=== PATIENT | female | born 1990 | race Native Hawaiian/Other Pacific Islander ===

== ENCOUNTER 2023-06-09 03:34 | Emergency (ER) | payer SELFPAY ==
[~2023-06-09] VITALS: Ht 152 cm; Wt 41.0 kg
--- NOTE | 2023-06-09 03:50 | ED General ---
General Stated Complaint: CP,ABD PAIN Source of Information: Patient Exam Limitations: Language Barrier History of Present Illness Date Seen by Provider: Jun 09, 2023 Time Seen by Provider: 03:50 Initial Comments Patient is a 33-year-old female who presents to the emergency department with family chief complaint of abdominal and chest pain. History and review of systems are limited secondary to language barrier as the patient is . Reportedly the pain started this evening. She points to the epigastrium and low chest. She denies nausea. She denies burning with urination or diarrhea. She rates the pain at about a "5". She has not taken anything for it. She has not vomited. She takes no daily medications. She has had no prior surgeries. She has never been . She her last menstrual period was "last month". She is not making any eye contact. Head turned to her left with eyes closed and mumbles responses to core dipper who is a family member at the bedside. Timing/Duration: 1-3 Hours Severity: Moderate Associated Systoms: Chest Pain (abdominal pain) Allergies and Home Medications Allergies Coded Allergies: No Known Drug Allergies (Unverified , 06/09/23) Patient Home Medication List Home Medication List Reviewed: Yes Review of Systems Review of Systems Constitutional: see HPI EENTM: no symptoms reported Respiratory: no symptoms reported Cardiovascular: chest pain Gastrointestinal: abdominal pain Genitourinary: no symptoms reported Musculoskeletal: no symptoms reported Skin: no symptoms reported Psychiatric/Neurological: No Symptoms Reported Physical Exam Vital Signs Vital Signs - First Documented 06/09/23 03:46 Temp 36.9 Pulse 73 Resp 12 B/P (MAP) 121/66 (84) Pulse Ox 99 O2 Delivery Room Air Capillary Refill : Height, Weight, BMI Height: '" Weight: lbs. oz. kg; BMI Method: General Appearance: No Apparent Distress, Thin Eyes: Bilateral Eye Normal Inspection, Bilateral Eye PERRL HEENT: PERRL/EOMI, Moist Mucous Membranes Neck: Normal Inspection Respiratory: Lungs Clear, Normal Breath Sounds, No Accessory Muscle Use, No Respiratory Distress Cardiovascular: Regular Rate, Rhythm, Normal Peripheral Pulses Gastrointestinal: Other (voluntary guarding with palpation of the abdomen; normal bowel sounds. no distension. neg heel jar. neg psoas) Extremity: Normal Inspection, No Pedal Edema Neurologic/Psychiatric: Alert, No Motor/Sensory Deficits, Depressed Affect (flat and depressed affect; poor eye contact; ) Skin: Normal Color, Warm/Dry Progress/Results/Core Measures Suspected Sepsis SIRS Temperature: Pulse: Respiratory Rate: Laboratory Tests 06/09/23 03:55: White Blood Count 9.1 Blood Pressure / Mean: Laboratory Tests 06/09/23 03:55: Creatinine 0.77, Platelet Count 210, Total Bilirubin 0.5 Results/Orders Lab Results Laboratory Tests Test 06/09/23 03:55 06/09/23 04:20 Range/Units White Blood Count 9.1 4.3-11.0 10^3/uL Red Blood Count 4.00 3.80-5.11 10^6/uL Hemoglobin 11.6 11.5-16.0 g/dL Hematocrit 36 35-52 % Mean Corpuscular Volume 89 80-99 fL Mean Corpuscular Hemoglobin 29 25-34 pg Mean Corpuscular Hemoglobin Concent 33 32-36 g/dL Red Cell Distribution Width 12.2 10.0-14.5 % Platelet Count 210 130-400 10^3/uL Mean Platelet Volume 10.0 9.0-12.2 fL Immature Granulocyte % (Auto) 0 % Neutrophils (%) (Auto) 59 42-75 % Lymphocytes (%) (Auto) 30 12-44 % Monocytes (%) (Auto) 9 0-12 % Eosinophils (%) (Auto) 2 0-10 % Basophils (%) (Auto) 1 0-10 % Neutrophils # (Auto) 5.4 1.8-7.8 10^3/uL Lymphocytes # (Auto) 2.7 1.0-4.0 10^3/uL Monocytes # (Auto) 0.8 0.0-1.0 10^3/uL Eosinophils # (Auto) 0.2 0.0-0.3 10^3/uL Basophils # (Auto) 0.1 0.0-0.1 10^3/uL Immature Granulocyte # (Auto) 0.0 0.0-0.1 10^3/uL Sodium Level 136 135-145 MMOL/L Potassium Level 3.5 L 3.6-5.0 MMOL/L Chloride Level 107 98-107 MMOL/L Carbon Dioxide Level 20 L 21-32 MMOL/L Anion Gap 9 5-14 MMOL/L Blood Urea Nitrogen 8 7-18 MG/DL Creatinine 0.77 0.60-1.30 MG/DL Estimat Glomerular Filtration Rate 104 BUN/Creatinine Ratio 10 Glucose Level 96 70-105 MG/DL Calcium Level 8.7 8.5-10.1 MG/DL Corrected Calcium 8.7 8.5-10.1 MG/DL Total Bilirubin 0.5 0.1-1.0 MG/DL Aspartate Amino Transf (AST/SGOT) 20 5-34 U/L Alanine Aminotransferase (ALT/SGPT) 9 0-55 U/L Alkaline Phosphatase 58 40-136 U/L Total Protein 8.3 H 6.4-8.2 GM/DL Albumin 4.0 3.2-4.5 GM/DL Lipase 35 8-78 U/L Urine Color YELLOW Urine Clarity CLEAR Urine pH 5.5 5-9 Urine Specific [place] >=1.030 1.016-1.022 Urine Protein TRACE NEGATIVE Urine Glucose (UA) NEGATIVE NEGATIVE Urine Ketones NEGATIVE NEGATIVE Urine Nitrite POSITIVE H NEGATIVE Urine Bilirubin NEGATIVE NEGATIVE Urine Urobilinogen 1.0 < = 1.0 MG/DL Urine Leukocyte Esterase NEGATIVE NEGATIVE Urine RBC (Auto) 3+ H NEGATIVE Urine RBC NONE /HPF Urine WBC 0-2 /HPF Urine Squamous Epithelial Cells 0-2 /HPF Urine Crystals NONE /LPF Urine Bacteria LARGE H /HPF Urine Casts NONE /LPF Urine Mucus NEGATIVE /LPF Urine Culture Indicated YES My Orders Orders - VINCE PENA MD Ed Iv/Invasive Line Start (06/09/23 04:01) Cbc And Automated Diff (06/09/23 04:01) Comprehensive Metabolic Panel (06/09/23 04:01) Lipase (06/09/23 04:01) Ua Culture If Indicated (06/09/23 04:01) Urine Bedside (06/09/23 04:01) Ns Iv 1000 Ml (Ns Iv 1000 Ml) (06/09/23 04:01) Ketorolac Injection (Ketorolac Injection (06/09/23 05:00) Urine Culture (06/09/23 04:20) Ct Abd/Pelvis Wo(Kidney Stone) (06/09/23 05:30) Medications Given in ED Current Medications Medications Dose Ordered Sig/Miladis Route Start Time Stop Time Status Last Admin Dose Admin Ketorolac Tromethamine 15 mg ONCE ONCE IVP 06/09/23 05:00 06/09/23 05:01 DC 06/09/23 04:59 15 MG Vital Signs/I&O 06/09/23 03:46 Temp 36.9 Pulse 73 Resp 12 B/P (MAP) 121/66 (84) Pulse Ox 99 O2 Delivery Room Air Capillary Refill : Progress Note : Time: 05:53 Progress Note Patient seen and examined by me. Eval today includes physical exam, CBC, CMP, Urine test, UA and Ct renal stone protocol. SHe has voluntary guarding to the abdomen with slightly hypoactive BS. No other contributing physical exam findings. Stable VS. ddx includes UTI, constipation, appendicitis, renal stone Labs independently reviewed and interpreted by me. Her CBC is normal, CMP normal urine preg is negative. Ua reveals TNTC WBC and large bacteria. Patient maintains no pain with urination and denies being on period. CT renal stone protocl independently reviewed and interpreted by me - I see no evidence of kidney stone. She is treated with 15mg IV toradol and has complete relief of pain. She is much more alert at the time of my re-evaluation and states that she is ready to go home. SHe does have quite a bit of bowel gas on her CT. Possibly this is was just dyspepsia and gas. I will give her return precautions - if fever, vomiting return to care. Patient encouraged to follow up with [facility] to establish care for routine health maintenance. ECG Initial ECG Impression Date: Jun 09, 2023 Initial ECG Impression Time: 03:54 Initial ECG Rate: 69 Initial ECG Rhythm: Normal Sinus Initial ECG Intervals: Normal Initial ECG Impression: Normal Initial ECG Comparisson: No Previous ECG Available Diagnostic Imaging Diagonstic Imaging: CT Comments NAME: CIERRA MAZA [facility] REC#: [id number] PT STATUS: REG ER : 1990 PHYSICIAN: VINCE PENA MD ADMIT DATE: 06/09/23/ER Draft Date of Exam:06/09/23 CT ABD/PELVIS WO(KIDNEY STONE) Clinical indication: Patient chest pain and abdominal pain. Exam: CT exam of the abdomen and pelvis is performed without IV or oral contrast using stone protocol. Coronal and sagittal reformatted images were created. Auto Exposure Controls were utilized during the CT exam to meet ALARA standards for radiation dose reduction. Comparisons: None. Findings: Visualized lung bases: Unremarkable. Liver: Unremarkable as visualized. Gallbladder: Unremarkable. Pancreas: Unremarkable as visualized. Spleen: Unremarkable as visualized. Adrenal glands: Unremarkable. Kidneys/ ureters: Unremarkable as visualized. Aorta: Unremarkable as visualized. Intraabdominal/ retroperitoneal contents: Unremarkable. Intestines: Unremarkable as visualized. Appendix: Unremarkable. Bladder: Unremarkable as visualized. Pelvic organs: Unremarkable as visualized. There is a small amount of free fluid in the pelvis which may be physiologic. Extra abdominal/ pelvis regions: Unremarkable. Abdominal wall: Unremarkable. Bones: Unremarkable. Impression: Unremarkable CT scan of the abdomen and pelvis without IV contrast. Dictated on workstation # [id number] Dict: 06/09/23 0559 Trans: 06/09/23 0604 [id number] Interpreted by: BERNY KWOK MD Electronically signed by: Departure Impression Primary Impression: Abdominal pain Qualified Codes: R10.84 - Generalized abdominal pain Disposition: 01 HOME, SELF-CARE Condition: Improved Departure-Patient Inst. Decision time for Depature: 05:59 Referrals: [facility] [place]YSIC[place] (PCP) Primary Care Physician Patient Instructions: Abdominal Pain, Adult ED Add. Discharge Instructions: Drink plenty of fluids to stay well hydrated. You can take ibuprofen or tylenol for pain. If you develop a fever or vomiting - please return to the Emergency Department for re-evaluation. VINCE PENA MD Jun 09, 2023 03:50
[2023-06-09] MEDS ORDERED: NS IV 1000 ML 1,000 ML IV STA (04:01)
[2023-06-09 04:12] LABS: BASOPHILS # (AUTO) 0.1 10^3/uL (0.0-0.1); BASOPHILS % (AUTO) 1 % (0-10); EOSINOPHILS # (AUTO) 0.2 10^3/uL (0.0-0.3); EOSINOPHILS % (AUTO) 2 % (0-10); HEMATOCRIT 36 % (35-52); HEMOGLOBIN 11.6 g/dL (11.5-16.0); LYMPHOCYTES # (AUTO) 2.7 10^3/uL (1.0-4.0); LYMPHOCYTES % (AUTO) 30 % (12-44); MEAN CORPUSCULAR HEMOGLOBIN 29 pg (25-34); MEAN CORPUSCULAR HGB CONC 33 g/dL (32-36); MEAN CORPUSCULAR VOLUME 89 fL (80-99); MONOCYTES # (AUTO) 0.8 10^3/uL (0.0-1.0); MONOCYTES % (AUTO) 9 % (0-12); NEUTROPHILS # (AUTO) 5.4 10^3/uL (1.8-7.8); NEUTROPHILS % (AUTO) 59 % (42-75); PLATELET COUNT 210 10^3/uL (130-400); WHITE BLOOD COUNT 9.1 10^3/uL (4.3-11.0)
[2023-06-09 04:20] LABS: POTASSIUM 3.5 MMOL/L (3.6-5.0)
[2023-06-09 04:21] LABS: CALCIUM 8.7 MG/DL (8.5-10.1)
[2023-06-09 04:23] LABS: TOTAL PROTEIN 8.3 GM/DL (6.4-8.2)
[2023-06-09 04:24] LABS: BILIRUBIN,TOTAL 0.5 MG/DL (0.1-1.0)
[2023-06-09 04:26] LABS: CREATININE SERUM 0.77 MG/DL (0.60-1.30)
[2023-06-09] MEDS ORDERED: KETOROLAC INJ 15 MG/ML VIAL IVP ONE (05:00)
[2023-06-09 05:01] LABS: CLARITY,URINE CLEAR; COLOR,URINE YELLOW
[2023-06-09 05:02] LABS: BILIRUBIN,URINE NEGATIVE (NEGATIVE); GLUCOSE, URINE (UA) NEGATIVE (NEGATIVE); KETONES,URINE NEGATIVE (NEGATIVE); LEUKOCYTE ESTERASE ,URINE NEGATIVE (NEGATIVE); NITRITE,URINE POSITIVE (NEGATIVE); PH,URINE 5.5 (5-9); PROTEIN,URINE TRACE (NEGATIVE)
[2023-06-09 05:03] LABS: BACTERIA,URINE LARGE /HPF; SQUAMOUS EPITHELIAL CELL,UR 0-2 /HPF; WBC,URINE 0-2 /HPF
--- NOTE | 2023-06-09 06:05 | Diagnostic Imaging Report ---
Clinical indication: Patient chest pain and abdominal pain. Exam: CT exam of the abdomen and pelvis is performed without IV or oral contrast using stone protocol. Coronal and sagittal reformatted images were created. Auto Exposure Controls were utilized during the CT exam to meet ALARA standards for radiation dose reduction. Comparisons: None. Findings: Visualized lung bases: Unremarkable. Liver: Unremarkable as visualized. Gallbladder: Unremarkable. Pancreas: Unremarkable as visualized. Spleen: Unremarkable as visualized. Adrenal glands: Unremarkable. Kidneys/ ureters: Unremarkable as visualized. Aorta: Unremarkable as visualized. Intraabdominal/ retroperitoneal contents: Unremarkable. Intestines: Unremarkable as visualized. Appendix: Unremarkable. Bladder: Unremarkable as visualized. Pelvic organs: Unremarkable as visualized. There is a small amount of free fluid in the pelvis which may be physiologic. Extra abdominal/ pelvis regions: Unremarkable. Abdominal wall: Unremarkable. Bones: Unremarkable. Impression: Unremarkable CT scan of the abdomen and pelvis without IV contrast. Dictated by: Dictated on workstation # [id number]
[2023-06-09 06:11] VITALS: BP 100/58
== END 2023-06-09 06:14 | disposition home or self-care (01) ==
LOC: ER 03:41
DX: R10.84 Generalized abdominal pain (principal)
CPT/HCPCS: 36415; 74176; 80053; 81000; 83690; 84703; 85025; 87088; 87186; 93005; 96361; 96374